=== PATIENT | female | born 1980 | race African-American/Black ===

== ENCOUNTER 2016-08-26 19:02 | Emergency (ER) | payer BC, OTHER ==
[~2016-08-26] VITALS: Ht 144.8 cm; Wt 90.7 kg
[~2016-08-26 19:02] MED LIST: ALBUTEROL SULF8.5 GM INH; ALBUTEROL2.5 MG/3 M HHN; FLONASE1 SPRAYS NASAL; IBUPROFEN800 MG ORAL; NKM; PREDNISONE20 MG ORAL; PRENATAL 19 CH1 EACH PO; PROAIR HFA8.5 GM INH; PROMETHAZINE V237 ML ORAL; VENTOLIN HFA18 GM INH; ZITHROMAX250 MG ORAL
--- NOTE | 2016-08-26 19:58 | Emergency Room Report ---
History of Present Illness General Chief Complaint: Palpitations Source: Patient Present Illness HPI Is a 36-year-old female with no similar past medical history. She had history of palpitation before. She presents with chief complaint of palpitation. Has been on and off for last couple months. Lasted only a few seconds. Denies any fever chills denies any syncope. Last time this happened she said she was . Did not check home test. No chest pain. No syncope. Allergies: Coded Allergies: No Known Allergies (Unverified , 09/07/12) Patient History Past Medical History: see triage record, old chart reviewed Past Surgical History: other Pertinent Family History: none Social History: Denies: smoking Last Menstrual Period: 3 months ago Now: No Immunizations: other Reviewed Nursing Documentation: PMH: Agreed, PSxH: Agreed Nursing Documentation-PMH Past Medical History: No History, Except For Hx Asthma: Yes Review of Systems Eye: Denies: blurred vision, eye pain ENT: Denies: ear pain, nose congestion, throat swelling Respiratory: Denies: cough, shortness of breath Cardiovascular: Reports: palpitations, Denies: chest pain Gastrointestinal: Denies: abdominal pain, diarrhea, nausea, vomiting Musculoskeletal: Denies: back pain, joint pain Skin: Denies: rash Neurological: Denies: headache, numbness Endocrine: Denies: increased thirst, increased urine Hematologic/Lymphatic: Denies: easy bruising All Other Systems: negative except mentioned in HPI Physical Exam Vital Signs Date Time Temp Pulse Resp B/P Pulse Ox O2 Delivery O2 Flow Rate FiO2 08/26/16 19:08 97.9 87 16 109/76 99 Room Air vitals normal. Sp02 EP Interpretation: reviewed, normal General Appearance: well appearing, no apparent distress, alert Head: normocephalic, atraumatic Eyes: bilateral eye EOMI, bilateral eye PERRL ENT: hearing grossly normal, normal pharynx Neck: full range of motion, supple, no meningismus Respiratory: chest non-tender, lungs clear, normal breath sounds Cardiovascular #1: regular rate, rhythm, no murmur Gastrointestinal: normal bowel sounds, non tender, no mass, no organomegaly, no bruit, non-distended Musculoskeletal: back normal, gait/station normal, normal range of motion Psychiatric: mood/affect normal Skin: warm/dry Medical Decision Making Diagnostic Impression: Primary Impression: Palpitations ER Course Patient presents with vague palpitation. Not sustain. Most likely PVC. No evidence of arrhythmia. No evidence of PE or here. We'll discharge him. EKG Diagnostic Results EP Interpretation: no Rate: normal Rhythm: NSR ST Segments: no acute changes Rhythm Strip Diag. Results EP Interpretation: yes Rate: 88 Rhythm: NSR Last Vital Signs Date Time Temp Pulse Resp B/P Pulse Ox O2 Delivery O2 Flow Rate FiO2 08/26/16 19:08 97.9 87 16 109/76 99 Room Air Status: improved Disposition: HOME, SELF-CARE Condition: Stable Referrals: NON PHYSICIAN (PCP) Patient Instructions: Palpitations Additional Instructions: Follow up with your doctor in 7 days. Return if worse. You may need a referral to see a cotton picker. CONSTANCE FINE M.D. Aug 26, 2016 19:58
[2016-08-26 20:20] VITALS: BP 104/52
== END 2016-08-26 20:20 | disposition home or self-care (01) ==
LOC: EMR 19:30
DX: R00.2 Palpitations (principal); J45.909 Unspecified asthma, uncomplicated
CPT/HCPCS: 81025; 93005; 99282

== ENCOUNTER 2017-01-22 18:11 | Emergency (ER) | payer BC, OTHER ==
[~2017-01-22] VITALS: Ht 144.8 cm; Wt 81.6 kg
[2017-01-22] MEDS ORDERED: NITROFURANTOIN100 M2 ORAL (18:58)
--- NOTE | 2017-01-22 18:58 | Emergency Room Report ---
History of Present Illness General Chief Complaint: Female Urogenital Problems Source: Patient Present Illness HPI 36-year-old female yo F no sig pmhx p/w dysuria for one day. Pt states symptoms began gradually. Complains of suprapubic pressure. +dysuria , frequency, urgency. No hematuria. No fever chills denies flank pain Monogamous with 1 partner No hx of STDs. Denies abnormal vaginal discharge or bleeding. Patient states that she has an IUD, her last period was a month ago Allergies: Coded Allergies: No Known Allergies (Unverified , 09/07/12) Patient History Past Medical History: see triage record Past Surgical History: none Pertinent Family History: none Last Menstrual Period: last month Reviewed Nursing Documentation: PMH: Agreed, PSxH: Agreed Nursing Documentation-PMH Past Medical History: No History, Except For Hx Asthma: Yes Review of Systems All Other Systems: negative except mentioned in HPI Physical Exam Vital Signs Date Time Temp Pulse Resp B/P (MAP) Pulse Ox O2 Delivery O2 Flow Rate FiO2 01/22/17 18:21 98.1 82 18 105/71 98 Room Air Sp02 EP Interpretation: reviewed, normal General Appearance: normal inspection, well appearing, no apparent distress, alert, GCS 15, non-toxic Head: normocephalic, atraumatic Eyes: bilateral eye normal inspection, bilateral eye PERRL, bilateral eye EOMI ENT: normal ENT inspection, normal pharynx, normal voice, moist mucus membranes Neck: normal inspection, full range of motion, supple Respiratory: normal inspection, lungs clear, normal breath sounds, no respiratory distress, no retraction, no wheezing, speaking full sentences, chest symmetrical Cardiovascular #1: normal inspection, regular rate, rhythm, no edema, normal capillary refill Cardiovascular #2: 2+ radial (R), 2+ radial (L) Gastrointestinal: normal inspection, non tender, soft, non-distended, no guarding Musculoskeletal: normal inspection, back normal, normal range of motion, non- tender Neurologic: normal inspection, alert, oriented x3, responsive, motor strength/ tone normal, sensory intact, normal gait, speech normal Psychiatric: normal inspection, judgement/insight normal, memory normal Skin: normal inspection, normal color, no rash, warm/dry, well hydrated, normal turgor Medical Decision Making Diagnostic Impression: Primary Impression: UTI (urinary tract infection) ER Course 36 yo F with dysuria DDX: UTI / cystitis vs. pyelo vs STD Plan: UA, UCX ER course: Patient has remained stable during ED stay. Disposition: Patient is to be discharged to home. Prescriptions given are Macrobid Patient is instructed to follow up with their primary care doctor within 5 days. Strict return precautions discussed with patient such as fever, chills, worsening/severe pain, nausea, vomiting, which may indicate severe illness. Patient verbalizes understanding and agrees with plan. Please note that this Emergency Department Report was dictated using Mtivityhelp desk assistant technology software, occasionally this can lead to erroneous entry secondary to interpretation by the dictation equipment Laboratory Tests Test 01/22/17 18:30 Urine Color Brown Urine Appearance Clear Urine pH 6 (4.5-8.0) Urine Specific [place] 1.015 (1.005-1.035) Urine Protein Negative (NEGATIVE) Urine Glucose (UA) Negative (NEGATIVE) Urine Ketones Negative (NEGATIVE) Urine Occult Blood Negative (NEGATIVE) Urine Nitrite Positive (NEGATIVE) H Urine Bilirubin 1+ (NEGATIVE) H Urine Ictotest Negative Urine Urobilinogen 4 MG/DL (0.0-1.0) H Urine Leukocyte Esterase Negative (NEGATIVE) Urine RBC 0-2 /HPF (0 - 2) Urine WBC 0-2 /HPF (0 - 2) Urine Squamous Epithelial Cells Few /LPF (NONE/OCC) Urine Bacteria Few /HPF (NONE) Urine HCG, Qualitative Negative Last Vital Signs Date Time Temp Pulse Resp B/P (MAP) Pulse Ox O2 Delivery O2 Flow Rate FiO2 01/22/17 18:21 98.1 82 18 105/71 98 Room Air Disposition: HOME, SELF-CARE Condition: Stable Scripts Nitrofurantoin Monohyd/M-Cryst* (MACROBID 100 MG*) 100 Mg Capsule 100 MG ORAL EVERY 12 HOURS for 7 Days, #14 CAP 0 Refills Prov: Corie Carrasco M.D. 01/22/17 Patient Instructions: Urinary Tract Infection Corie Carrasco M.D. Jan 22, 2017 18:58
[2017-01-22 19:07] LABS: APPEARANCE,URINE CLEAR; KETONES,URINE NEGATIVE (NEGATIVE); LEUKOCYTE ESTERASE ,URINE NEGATIVE (NEGATIVE); NITRITE,URINE POSITIVE (NEGATIVE); PH,URINE 6 (4.5-8.0); PROTEIN,URINE NEGATIVE (NEGATIVE); UROBILINOGEN,URINE 4 MG/DL (0.0-1.0)
[2017-01-22 19:14] VITALS: BP 105/71
[2017-01-22 19:36] LABS: BACTERIA,URINE FEW /HPF; ICTOTEST NEGATIVE; RBC,URINE 0-2 /HPF (0 - 2); SQUAMOUS EPITHELIAL CELL,UR FEW /LPF (NONE/OCC); WBC,URINE 0-2 /HPF (0 - 2)
[2017-01-22 19:59] VITALS: BP 105/71
== END 2017-01-22 19:59 | disposition home or self-care (01) ==
LOC: EMR 19:00
DX: N39.0 Urinary tract infection, site not specified (principal); J45.909 Unspecified asthma, uncomplicated
CPT/HCPCS: 81001; 81025; 99283

== ENCOUNTER 2017-02-27 19:37 | Emergency (ER) | payer BC ==
[~2017-02-27] VITALS: Ht 144.8 cm; Wt 81.6 kg
[~2017-02-27 19:37] MED LIST changes: +NITROFURANTOIN100 M2 ORAL
[2017-02-27 20:04] VITALS: BP 102/72
--- NOTE | 2017-02-27 20:14 | Emergency Room Report ---
History of Present Illness General Chief Complaint: Abdominal Pain Source: Patient Present Illness HPI 36YOF with 1 week of "cramps" to abdomen and nausea. Denies vomiting, fever/chills Was treated for UTI last month - finished Abx Son also here with rash to abdomen and 1x episode vomiting last night LMP 2 months ago Allergies: Coded Allergies: No Known Allergies (Unverified , 09/07/12) Patient History Past Medical History: none Past Surgical History: none Pertinent Family History: none Social History: Denies: smoking, alcohol use, drug use Last Menstrual Period: dec 25 Now: No - has IUD : 5 Para: 2 Immunizations: UTD Reviewed Nursing Documentation: PMH: Agreed, PSxH: Agreed Nursing Documentation-PMH Hx Asthma: Yes Review of Systems All Other Systems: negative except mentioned in HPI Physical Exam Vital Signs Date Time Temp Pulse Resp B/P (MAP) Pulse Ox O2 Delivery O2 Flow Rate FiO2 02/27/17 19:44 97.9 76 18 102/72 99 Sp02 EP Interpretation: reviewed, normal General Appearance: normal inspection, well appearing, no apparent distress, alert, GCS 15, non-toxic, obese Head: normocephalic, atraumatic Eyes: bilateral eye PERRL, bilateral eye EOMI ENT: normal ENT inspection, hearing grossly normal, normal pharynx, no angioedema, normal voice, TMs + canals normal, uvula midline, moist mucus membranes Neck: normal inspection, full range of motion, supple, thyroid normal, no meningismus, no bony tend Respiratory: normal inspection, lungs clear, normal breath sounds, no rhonchi, no respiratory distress, no retraction, no accessory muscle use, no wheezing, speaking full sentences Cardiovascular #1: regular rate, rhythm, no edema, no JVD, normal capillary refill Gastrointestinal: normal inspection, normal bowel sounds, non tender, soft, no mass, no peritonitis, non-distended, no guarding, no hernia, no pulsatile mass Genitourinary: no CVA tenderness Musculoskeletal: normal inspection, back normal, normal range of motion, no calf tenderness, pelvis stable, No's Sign negative Neurologic: normal inspection, alert, oriented x3, responsive, polysomnograph tech III-XII nml as tested, motor strength/tone normal, cerebellar normal, normal gait, speech normal Psychiatric: normal inspection, judgement/insight normal, mood/affect normal, no suicidal/homicidal ideation, no delusions Skin: normal inspection, normal color, no rash Lymphatic: normal inspection, no adenopathy Medical Decision Making Diagnostic Impression: Primary Impression: Abdominal cramping ER Course Urine preg negative UA: No UTI Improved cramps after Reglan, bentyl DC home Doubt acute bacterial/surgical process given well appearance, non-focal abdomen , no fever or unstable vitals ER course: Patient has remained stable during ED stay. Patient is to be discharged to home. Prescriptions given are pepcid, reglan Patient is instructed to follow up with their primary care doctor within 5 days. Strict return precautions discussed with patient such as fever, chills, worsening/severe pain, nausea, vomiting, which may indicate severe illness. Patient verbalizes understanding and agrees with plan. Please note that this Emergency Department Report was dictated using Biomodacardiovascular tech technology software, occasionally this can lead to erroneous entry secondary to interpretation by the dictation equipment Last Vital Signs Date Time Temp Pulse Resp B/P (MAP) Pulse Ox O2 Delivery O2 Flow Rate FiO2 02/27/17 20:04 97.9 18 102/72 99 02/27/17 19:44 76 Status: improved Disposition: HOME, SELF-CARE Scripts Famotidine (PEPCID) 40 Mg Tablet 40 MG PO DAILY for 7 Days, #14 TAB 0 Refills Prov: MARGY MAC M.D. 02/27/17 Metoclopramide Hcl* (REGLAN*) 10 Mg Tablet 10 MG ORAL BID for 7 Days, #14 TAB Prov: MARGY MAC M.D. 02/27/17 MARGY MAC M.D. Feb 27, 2017 20:14
[2017-02-27] MEDS ORDERED: Metoclopramide 10mg/10ml Liq ORAL ONE (20:15)
[2017-02-27 20:30] LABS: APPEARANCE,URINE CLEAR; KETONES,URINE NEGATIVE (NEGATIVE); LEUKOCYTE ESTERASE ,URINE NEGATIVE (NEGATIVE); NITRITE,URINE NEGATIVE (NEGATIVE); PH,URINE 5 (4.5-8.0); PROTEIN,URINE NEGATIVE (NEGATIVE); UROBILINOGEN,URINE NORMAL MG/DL (0.0-1.0)
[2017-02-27 20:38] LABS: RBC,URINE 0-2 /HPF (0 - 2); SQUAMOUS EPITHELIAL CELL,UR MODERATE /LPF (NONE/OCC); WBC,URINE 0-2 /HPF (0 - 2)
[2017-02-27] MEDS ORDERED: Ketorolac 60mg Inj IM ONE (20:45)
[2017-02-27] MEDS ORDERED: REGLAN10 M1 ORAL (20:46)
[2017-02-27] MEDS ORDERED: PEPCID40 MG PO (20:46)
[2017-02-27 20:59] VITALS: BP 128/71
== END 2017-02-27 20:59 | disposition home or self-care (01) ==
LOC: EMR 20:14
DX: R10.9 Unspecified abdominal pain (principal); J45.909 Unspecified asthma, uncomplicated; Z87.440 Personal history of urinary (tract) infections
CPT/HCPCS: 81003; 81025; 99284

== ENCOUNTER 2018-10-27 13:03 | Emergency (ER) | payer BC ==
[~2018-10-27] VITALS: Ht 144.8 cm; Wt 117.0 kg
[~2018-10-27 13:03] MED LIST changes: +PEPCID40 MG PO; +REGLAN10 M1 ORAL
[2018-10-27] MEDS ORDERED: NKM (13:11)
[2018-10-27 13:20] VITALS: BP 107/66
--- NOTE | 2018-10-27 13:20 | NUR ---
ED Nurse Note: pt walked in due to headache started yesterday, no trauma. pt denies blurred vison. able to walked with steady gait. pt stated she has bruning urination. rosi rodriguez on bedside. pt able to give urine sample and blood drawn and was sent to lab. will continue to monitor
[2018-10-27] MEDS ORDERED: Ketorolac 30mg Inj IV ONE (13:30)
--- NOTE | 2018-10-27 13:30 | Emergency Room Report ---
History of Present Illness General Chief Complaint: Headache Source: Patient Present Illness HPI 38-year-old female complaining of frontal headache, vomiting, runny nose, burning urination since yesterday. Pain is 6/10, pressure in quality. Denies fever, neck pain, blood in urine, diarrhea. No current medications. No sick contacts. She drove herself to the ER. Allergies: Coded Allergies: No Known Allergies (Unverified , 09/07/12) Patient History Past Medical History: none Past Surgical History: none Social History: Denies: smoking, alcohol use, drug use Last Menstrual Period: 10/06/18 Now: No : 4 Para: 3 Nursing Documentation-[facility] Past Medical History: No Stated History Hx Asthma: Yes Review of Systems All Other Systems: negative except mentioned in HPI Physical Exam Vital Signs Date Time Temp Pulse Resp B/P (MAP) Pulse Ox O2 Delivery O2 Flow Rate FiO2 10/27/18 13:07 98.6 77 17 107/66 (80) 96 Room Air Sp02 EP Interpretation: reviewed, normal General Appearance: no apparent distress, alert, GCS 15, non-toxic Eyes: bilateral eye normal inspection, bilateral eye PERRL ENT: hearing grossly normal, normal pharynx, no angioedema, normal voice Neck: full range of motion, no meningismus, supple/symm/no masses Respiratory: chest non-tender, lungs clear, normal breath sounds, speaking full sentences Cardiovascular #1: regular rate, rhythm, no edema Gastrointestinal: non tender, soft, no guarding, no rebound Genitourinary: no CVA tenderness Neurologic: normal inspection, skirt maker III-XII nml as tested, sensory intact, normal gait Psychiatric: judgement/insight normal, memory normal, mood/affect normal, no suicidal/homicidal ideation Medical Decision Making PA Attestation This patient was seen under the direct supervision of Dr. Joe who directed all aspects of care and diagnostic interpretation. ER Course ED course HPI: 38-year-old female complaining of frontal headache, vomiting, runny nose, burning urination since yesterday. Pain is 6/10, pressure in quality. Patient is well-appearing, nontoxic in appearance. Afebrile. Abdomen soft, nontender. No reboud, guarding or rigidity. Do not suspect acute abdomen. No neurological deficits. Patient exhibiting strong steady gait. Pt has no focal neural, arm drift, facial droop, unilateral weakness or numbness, slurred speech, vision impairment, therefore acute intracranial emergency is unlikely. No signs and symptoms of bacterial etiology/ meningitis. Ddx: viral syndrome versus UTI versus sinusitis HPI & PE consistent with: Headache Orders/ Interventions: Labs ordered. Normal CBC. Normal CMP. Negative urine . 3+ blood on urine, no evidence of UTI. Results discussed with patient. Patient given Toradol 30 mg, Zofran 4 mg and 1 L of normal saline in the ER, with improvement of symptoms. Disposition: Patient stable for discharge home. Rx for Naprosyn given. Supportive care. Increase oral hydration and rest. Followup with PCP for recheck of hematuria referral to urology. Followup with PCP in 2 days return to ED if worsening symptoms, new symptoms or sudden change in condition. Please note that this Emergency Department Report was dictated using TapZillasupervisor ornamental ironworking technology software, occasionally this can lead to erroneous entry secondary to interpretation by the dictation equipment. Laboratory Tests Test 10/27/18 13:25 White Blood Count 5.7 K/UL (4.8-10.8) Red Blood Count 4.78 M/UL (4.20-5.40) Hemoglobin 13.5 G/DL (12.0-16.0) Hematocrit 41.1 % (37.0-47.0) Mean Corpuscular Volume 86 FL (80-99) Mean Corpuscular Hemoglobin 28.2 PG (27.0-31.0) Mean Corpuscular Hemoglobin Concent 32.8 G/DL (32.0-36.0) Red Cell Distribution Width 11.6 % (11.6-14.8) Platelet Count 317 K/UL (150-450) Mean Platelet Volume 5.3 FL (6.5-10.1) L Neutrophils (%) (Auto) 52.1 % (45.0-75.0) Lymphocytes (%) (Auto) 28.7 % (20.0-45.0) Monocytes (%) (Auto) 10.3 % (1.0-10.0) H Eosinophils (%) (Auto) 7.2 % (0.0-3.0) H Basophils (%) (Auto) 1.7 % (0.0-2.0) Urine Color Pale yellow Urine Appearance Clear Urine pH 6 (4.5-8.0) Urine Specific [place] 1.020 (1.005-1.035) Urine Protein Negative (NEGATIVE) Urine Glucose (UA) Negative (NEGATIVE) Urine Ketones Negative (NEGATIVE) Urine Blood 3+ (NEGATIVE) H Urine Nitrite Negative (NEGATIVE) Urine Bilirubin Negative (NEGATIVE) Urine Urobilinogen 1 MG/DL (0.0-1.0) H Urine Leukocyte Esterase 1+ (NEGATIVE) H Urine RBC 2-4 /HPF (0 - 2) H Urine WBC 0-2 /HPF (0 - 2) Urine Squamous Epithelial Cells Few /LPF (NONE/OCC) Urine Bacteria Few /HPF (NONE) Sodium Level 139 MMOL/L (136-145) Potassium Level 4.1 MMOL/L (3.5-5.1) Chloride Level 107 MMOL/L (98-107) Carbon Dioxide Level 24 MMOL/L (21-32) Anion Gap 8 mmol/L (5-15) Blood Urea Nitrogen 15 mg/dL (7-18) Creatinine 0.8 MG/DL (0.55-1.30) Estimat Glomerular Filtration Rate > 60 mL/min (>60) Glucose Level 89 MG/DL (74-106) Calcium Level 8.9 MG/DL (8.5-10.1) Total Bilirubin 0.2 MG/DL (0.2-1.0) Aspartate Amino Transf (AST/SGOT) 17 U/L (15-37) Alanine Aminotransferase (ALT/SGPT) 18 U/L (12-78) Alkaline Phosphatase 48 U/L (46-116) Total Protein 7.1 G/DL (6.4-8.2) Albumin 3.4 G/DL (3.4-5.0) Globulin 3.7 g/dL Albumin/Globulin Ratio 0.9 (1.0-2.7) L Human Chorionic Gonadotropin, Qual Negative (NEGATIVE) Last Vital Signs Date Time Temp Pulse Resp B/P (MAP) Pulse Ox O2 Delivery O2 Flow Rate FiO2 10/27/18 13:07 98.6 77 17 107/66 (80) 96 Room Air Status: improved Disposition: HOME, SELF-CARE Condition: Improved Scripts Naproxen (Naproxen) 250 Mg Tablet 250 MG PO BID, #10 TAB Prov: Alton Brown 10/27/18 Patient Instructions: General Headache Without Cause Additional Instructions: Prescription for Naprosyn given. Follow-up with PCP in 2 days or return to ED if worsening symptoms, new symptoms, or sudden change in condition. Alton Brown Oct 27, 2018 13:30
--- NOTE | 2018-10-27 13:35 | NUR ---
ED Nurse Note: iv started per pa sybel order. iv meds given. pt able to tolerate. will continue to monitor.
[2018-10-27 13:38] LABS: APPEARANCE,URINE CLEAR; BASOPHILS % (AUTO) 1.7 % (0.0-2.0); BILIRUBIN, URINE NEGATIVE (NEGATIVE); COLOR,URINE PALE YELLOW; EOSINOPHILS % (AUTO) 7.2 % (0.0-3.0); GLUCOSE, URINE (UA) NEGATIVE (NEGATIVE); HEMATOCRIT 41.1 % (37.0-47.0); HEMOGLOBIN 13.5 G/DL (12.0-16.0); KETONES,URINE NEGATIVE (NEGATIVE); LEUKOCYTE ESTERASE ,URINE 1+ (NEGATIVE); LYMPHOCYTES % (AUTO) 28.7 % (20.0-45.0); MEAN CORPUSCULAR VOLUME 86 FL (80-99); MONOCYTES % (AUTO) 10.3 % (1.0-10.0); NEUTROPHILS % (AUTO) 52.1 % (45.0-75.0); NITRITE,URINE NEGATIVE (NEGATIVE); PH,URINE 6 (4.5-8.0); PLATELET COUNT 317 K/UL (150-450); PROTEIN,URINE NEGATIVE (NEGATIVE); RED BLOOD COUNT 4.78 M/UL (4.20-5.40); RED CELL DISTRIBUTION WIDTH 11.6 % (11.6-14.8); UROBILINOGEN,URINE 1 MG/DL (0.0-1.0); WHITE BLOOD COUNT 5.7 K/UL (4.8-10.8)
[2018-10-27 13:49] LABS: ANION GAP 8 mmol/L (5-15); BLOOD UREA NITROGEN 15 mg/dL (7-18); CALCIUM 8.9 MG/DL (8.5-10.1); CARBON DIOXIDE 24 MMOL/L (21-32); CHLORIDE 107 MMOL/L (98-107); CREATININE 0.8 MG/DL (0.55-1.30); POTASSIUM 4.1 MMOL/L (3.5-5.1); SODIUM 139 MMOL/L (136-145)
[2018-10-27 13:51] LABS: ALANINE AMINOTRANSFERASE 18 U/L (12-78); ALBUMIN 3.4 G/DL (3.4-5.0); ALBUMIN/GLOBULIN RATIO 0.9 (1.0-2.7); ALKALINE PHOSPHATASE 48 U/L (46-116); ASPARTATE AMINO TRANSFERASE 17 U/L (15-37); BILIRUBIN,TOTAL 0.2 MG/DL (0.2-1.0)
--- NOTE | 2018-10-27 14:00 | NUR ---
ED Nurse Note: rosi rodriguez ordered 1000cc ns to run for 1 hour and carried out. will continue to monitor.
[2018-10-27] MEDS ORDERED: NAPROXEN250 M1 PO (14:32)
[2018-10-27 14:44] VITALS: BP 107/66
--- NOTE | 2018-10-27 14:44 | NUR ---
ER DISCHARGE NOTE: Patient is cleared to be discharged per ERMD, pt is aox4, on room air, with stable vital signs. pt was given dc and prescription instructions, pt was able to verbalize understanding, pt id band and iv site removed without complications. pt is able to ambulate with steady gait. pt took all belongings.
== END 2018-10-27 14:44 | disposition home or self-care (01) ==
LOC: EMR 13:30
DX: R51 Headache (principal); R11.10 Vomiting, unspecified; R30.0 Dysuria; R09.89 Other specified symptoms and signs involving the circulatory and respiratory systems
CPT/HCPCS: 36415; 80053; 81001; 84703; 85025; 87086; 96374; 96375; 99284; J1885; J2405

== ENCOUNTER 2019-05-24 08:58 | Emergency (ER) | payer BC ==
[~2019-05-24] VITALS: Ht 144.8 cm; Wt 77.1 kg
[~2019-05-24 08:58] MED LIST changes: +NAPROXEN250 M1 PO
[2019-05-24 09:04] VITALS: BP 108/77
--- NOTE | 2019-05-24 09:41 | Emergency Room Report ---
History of Present Illness General Chief Complaint: Back Pain-No Injury Source: Patient Present Illness HPI Patient is a 39-year-old female presented after increased left-sided back pain. She reports having onset of symptoms this morning. Reports recently lifting heavy objects at work. Pain is worse with movement. Denies any recent trauma. Denies any dysuria. She states she is had some back pain since this morning. Denies any vomiting or diarrhea. Denies numbness or weakness to her legs. Had reportedly been urinating normally.Patient denies any recent travel. COVID-19 risk:Travel to affect: No Has patient experienced pollock: No Allergies: Coded Allergies: No Known Allergies (Unverified , 09/07/12) Patient History Last Menstrual Period: started 05/22 Now: No Reviewed Nursing Documentation: PMH: Agreed; PSxH: Agreed Nursing Documentation-PMH Past Medical History: No History, Except For Hx Asthma: Yes Review of Systems All Other Systems: negative except mentioned in HPI Physical Exam Vital Signs Date Time Temp Pulse Resp B/P (MAP) Pulse Ox O2 Delivery O2 Flow Rate FiO2 05/24/19 09:04 97.7 91 19 108/77 95 Room Air General Appearance: well appearing, no apparent distress, alert, GCS 15, obese Head: normocephalic, atraumatic ENT: hearing grossly normal, normal voice Neck: full range of motion, supple Respiratory: chest non-tender, lungs clear, normal breath sounds, no respiratory distress, speaking full sentences Cardiovascular #1: normal inspection, no edema Gastrointestinal: normal inspection Musculoskeletal: normal inspection, no calf tenderness Neurologic: alert, motor strength/tone normal, hydrogeologist III-XII nml as tested, oriented x3, normal gait Psychiatric: normal inspection, mood/affect normal Skin: no rash Medical Decision Making Diagnostic Impression: Primary Impression: Flank pain ER Course Patient presented for flank pain. Differential diagnosis include was not limited to pneumonia, renal renal stone, pyelonephritis among others. Because of complexity of patient's case laboratory tests and imaging studies were ordered.Patient was advised not to lift heavy objects. Does not appear to have any evidence of acute respiratory infection. Chest x-ray read by radiology showed: Lung bases: Unremarkable. No mass. No consolidation. Left basilar opacity may represent atelectasis versus pneumonia. CT of the abdomen pelvis showed: ABDOMEN: Liver: Unremarkable. Gallbladder and bile ducts: Unremarkable. No calcified stones. No ductal dilation. Pancreas: Unremarkable. No ductal dilation. Spleen: Unremarkable. No splenomegaly. Adrenals: Unremarkable. No mass. Kidneys and ureters: No hydronephrosis or stone. Stomach and bowel: Unremarkable. No obstruction. No mucosal thickening. PELVIS: Appendix: Normal appendix. Bladder: Unremarkable. No stones. Reproductive: Unremarkable as visualized. ABDOMEN and PELVIS: Intraperitoneal space: Unremarkable. No free air. No significant fluid collection. Bones/joints: Probable small bone islands in the pelvic bones. No acute fracture. No dislocation. Soft tissues: Small fat-containing ventral hernias. Vasculature: Small phleboliths in the pelvis. No abdominal aortic aneurysm. Lymph nodes: Unremarkable. No enlarged lymph nodes. Patient's chest x-ray and CT had discrepant findings with CT showing no evidence of infiltrate. Patient does not appear to have any evidence of pneumonia. Patient advised to follow-up with her primary care physician for recheck. She is advised to avoid lifting heavy objects. She is advised to return if worse. The patient is advised to follow up with primary care doctor in 1-2 days. Patient is advised to return if any worsening condition or if any changes in status that are concerning. This report is dictated with AirC[employer] apple sorter software which may occasionally lead to discrepancies related to use of this software. Last Vital Signs Date Time Temp Pulse Resp B/P (MAP) Pulse Ox O2 Delivery O2 Flow Rate FiO2 05/24/19 09:04 97.7 91 19 108/77 (87) 95 Room Air Status: improved Disposition: HOME, SELF-CARE Condition: Stable Scripts Omeprazole Magnesium (PRILOSEC OTC) 20 Mg Tablet. 20 MG ORAL DAILY, #30 TAB Prov: Epifanio Isaac MD 05/24/19 Acetaminophen* (ACETAMINOPHEN EXTRA STRENGTH*) 500 Mg Tablet 500 MG ORAL Q8H PRN for Fever/Headache/Mild Pain, #30 TAB Prov: Epifanio Isaac MD 05/24/19 Epifanio Isaac MD May 24, 2019 09:41
[2019-05-24 09:49] LABS: APPEARANCE,URINE CLEAR; BILIRUBIN, URINE NEGATIVE (NEGATIVE); COLOR,URINE PALE YELLOW; GLUCOSE, URINE (UA) NEGATIVE (NEGATIVE); KETONES,URINE NEGATIVE (NEGATIVE); LEUKOCYTE ESTERASE ,URINE NEGATIVE (NEGATIVE); NITRITE,URINE NEGATIVE (NEGATIVE); PH,URINE 6 (4.5-8.0); PROTEIN,URINE NEGATIVE (NEGATIVE); UROBILINOGEN,URINE NORMAL MG/DL (0.0-1.0)
--- NOTE | 2019-05-24 10:34 | Diagnostic Imaging Report ---
EXAM: XR Chest, 1 View CLINICAL HISTORY: COUGH TECHNIQUE: Frontal view of the chest. COMPARISON: Chest radiograph on 09/24/2015 FINDINGS: Hardware: None. Lungs/pleura: Left basilar opacity may represent atelectasis versus pneumonia. No pleural effusion or pneumothorax. Heart/mediastinum: Normal. No cardiomegaly. Soft tissues: Unremarkable. Bones: No acute fracture. Upper abdomen: Normal. IMPRESSION: Left basilar opacity may represent atelectasis versus pneumonia.
[2019-05-24] MEDS ORDERED: Ketorolac 60mg Inj IM ONE (11:15)
--- NOTE | 2019-05-24 12:23 | Diagnostic Imaging Report ---
EXAM: CT Abdomen and Pelvis Without Intravenous Contrast CLINICAL HISTORY: PAIN TECHNIQUE: Axial computed tomography images of the abdomen and pelvis without intravenous contrast. CTDI is 13.2 mGy and DLP is 655 mGy-cm. One or more of the following dose reduction techniques were used: automated exposure control, adjustment of the mA and/or kV according to patient size, use of iterative reconstruction technique. COMPARISON: None FINDINGS: Lung bases: Unremarkable. No mass. No consolidation. ABDOMEN: Liver: Unremarkable. Gallbladder and bile ducts: Unremarkable. No calcified stones. No ductal dilation. Pancreas: Unremarkable. No ductal dilation. Spleen: Unremarkable. No splenomegaly. Adrenals: Unremarkable. No mass. Kidneys and ureters: No hydronephrosis or stone. Stomach and bowel: Unremarkable. No obstruction. No mucosal thickening. PELVIS: Appendix: Normal appendix. Bladder: Unremarkable. No stones. Reproductive: Unremarkable as visualized. ABDOMEN and PELVIS: Intraperitoneal space: Unremarkable. No free air. No significant fluid collection. Bones/joints: Probable small bone islands in the pelvic bones. No acute fracture. No dislocation. Soft tissues: Small fat-containing ventral hernias. Vasculature: Small phleboliths in the pelvis. No abdominal aortic aneurysm. Lymph nodes: Unremarkable. No enlarged lymph nodes. IMPRESSION: No acute findings in the abdomen or pelvis.
[2019-05-24] MEDS ORDERED: ACETAMINOPHEN500 M3 ORAL (12:26)
[2019-05-24] MEDS ORDERED: PRILOSEC OTC20 MG ORAL (12:26)
[2019-05-24 12:47] VITALS: BP 108/77
== END 2019-05-24 12:47 | disposition home or self-care (01) ==
LOC: EMR 09:40
DX: R10.9 Unspecified abdominal pain (principal); E66.9 Obesity, unspecified; K43.9 Ventral hernia without obstruction or gangrene
CPT/HCPCS: 71045; 74176; 81001; 81025; 96372; 99284

== ENCOUNTER 2019-08-22 14:42 | Emergency (ER) | payer SELFPAY ==
[~2019-08-22] VITALS: Ht 144.8 cm; Wt 96.6 kg
[~2019-08-22 14:42] MED LIST changes: +ACETAMINOPHEN500 M3 ORAL; +PRILOSEC OTC20 MG ORAL
[2019-08-22 15:14] VITALS: BP 106/75
[2019-08-22] MEDS ORDERED: Phenazopyridine 200mg tab ORAL ONE (15:45)
[2019-08-22 15:53] LABS: BASOPHILS % (AUTO) 1.6 % (0.0-2.0); EOSINOPHILS % (AUTO) 3.4 % (0.0-3.0); HEMATOCRIT 45.8 % (37.0-47.0); HEMOGLOBIN 14.4 G/DL (12.0-16.0); LYMPHOCYTES % (AUTO) 31.3 % (20.0-45.0); MEAN CORPUSCULAR VOLUME 89 FL (80-99); MONOCYTES % (AUTO) 6.1 % (1.0-10.0); NEUTROPHILS % (AUTO) 57.6 % (45.0-75.0); PLATELET COUNT 366 K/UL (150-450); RED BLOOD COUNT 5.14 M/UL (4.20-5.40); RED CELL DISTRIBUTION WIDTH 13.2 % (11.6-14.8); WHITE BLOOD COUNT 7.2 K/UL (4.8-10.8)
[2019-08-22 16:06] LABS: ANION GAP 8 mmol/L (5-15); BLOOD UREA NITROGEN 15 mg/dL (7-18); CALCIUM 8.8 MG/DL (8.5-10.1); CARBON DIOXIDE 29 MMOL/L (21-32); CHLORIDE 101 MMOL/L (98-107); CREATININE 1.1 MG/DL (0.55-1.30); POTASSIUM 4.3 MMOL/L (3.5-5.1); SODIUM 137 MMOL/L (136-145)
[2019-08-22 16:11] LABS: ALANINE AMINOTRANSFERASE 29 U/L (12-78); ALBUMIN 3.8 G/DL (3.4-5.0); ALKALINE PHOSPHATASE 53 U/L (46-116); ASPARTATE AMINO TRANSFERASE 18 U/L (15-37); BILIRUBIN,TOTAL 0.2 MG/DL (0.2-1.0)
[2019-08-22 16:51] LABS: APPEARANCE,URINE CLEAR; BILIRUBIN, URINE NEGATIVE (NEGATIVE); COLOR,URINE PALE YELLOW; GLUCOSE, URINE (UA) NEGATIVE (NEGATIVE); KETONES,URINE NEGATIVE (NEGATIVE); LEUKOCYTE ESTERASE ,URINE NEGATIVE (NEGATIVE); NITRITE,URINE NEGATIVE (NEGATIVE); PH,URINE 7 (4.5-8.0); PROTEIN,URINE NEGATIVE (NEGATIVE); UROBILINOGEN,URINE NORMAL MG/DL (0.0-1.0)
[2019-08-22 17:15] VITALS: BP 112/76
--- NOTE | 2019-08-22 17:28 | Emergency Room Report ---
History of Present Illness General Chief Complaint: Vomiting Source: Patient Present Illness HPI 39 YO Female presents to the ED c/o Vomiting x 3 days with associated nausea x 1 week. Denies fevers, chills, constipation or diarrhea. She also reports dysuria. She denies hematuria, urinary frequency or urgency. Patient denies vaginal discharge or bleeding. Patient reports the possibility of exists. She denies abdominal pain or tenderness. Patient reports generalized malaise and fatigue. She denies joint pain or muscle spasms. She denies headache, visual changes, neck pain/stiffness, cough, chest pain or palpitations. She denies recent head injury. She denies blood in the vomitus. She denies blood in the stool or black tarry stools. No other aggravating or relieving factors at this time patient does not report any other symptoms. Allergies: Coded Allergies: No Known Allergies (Unverified , 09/07/12) COVID-19 Screening Contact w/high risk pt: No Recent Travel to affected area: No Experienced COVID-19 symptoms?: No COVID-19 Testing performed SAP MANAGER: No Patient History Past Medical History: see triage record Past Surgical History: none Pertinent Family History: none Last Menstrual Period: 07/18/19 Now: No Immunizations: UTD Reviewed Nursing Documentation: PMH: Agreed; PSxH: Agreed Nursing Documentation-PMH Past Medical History: No History, Except For Hx Asthma: Yes Review of Systems All Other Systems: negative except mentioned in HPI Physical Exam Vital Signs Date Time Temp Pulse Resp B/P (MAP) Pulse Ox O2 Delivery O2 Flow Rate FiO2 08/22/19 14:52 98.2 70 16 106/75 (85) 99 Room Air Sp02 EP Interpretation: reviewed, normal General Appearance: no apparent distress, alert, GCS 15, non-toxic Head: normocephalic, atraumatic Eyes: bilateral eye normal inspection, bilateral eye PERRL ENT: hearing grossly normal, normal voice Neck: full range of motion Respiratory: lungs clear, normal breath sounds, speaking full sentences Cardiovascular #1: regular rate, rhythm Gastrointestinal: normal bowel sounds, non tender - no appreciable tenderness on exam. , soft, no mass, no peritonitis, non-distended, no guarding Rectal: deferred Genitourinary: normal inspection, no CVA tenderness, adnexa normal Musculoskeletal: normal range of motion, gait/station normal, non-tender Neurologic: alert, motor strength/tone normal, oriented x3, sensory intact, responsive, speech normal Psychiatric: judgement/insight normal Skin: normal color Medical Decision Making PA Attestation Dr. Solares is my supervising Physician whom patient management has been discussed with. Diagnostic Impression: Primary Impression: Vomiting Qualified Codes: R11.2 - Nausea with vomiting, unspecified ER Course 39 YO Female presents to the ED c/o Vomiting x 3 days with associated nausea x 1 week. Denies fevers, chills, constipation or diarrhea. She also reports dysuria. She denies hematuria, urinary frequency or urgency. Patient denies vaginal discharge or bleeding. Patient reports the possibility of exists. She denies abdominal pain or tenderness. Patient reports generalized malaise and fatigue. She denies joint pain or muscle spasms. She denies headache, visual changes, neck pain/stiffness, cough, chest pain or palpitations. She denies recent head injury. She denies blood in the vomitus. She denies blood in the stool or black tarry stools. No other aggravating or relieving factors at this time patient does not report any other symptoms. Ddx considered but are not limited to Diverticulitis, acute appendicitis, diarrhea,UC, PUD, GE, pancreatitis, gallstone, ovarian torsion, , ectopic , PID tubo-ovarian abscess, COVID-19. Vital signs: are WNL, pt. is afebrile. H&PE are most consistent with gastritis versus possible . Patient is nontoxic, in appearance she is in no acute distress. Not hypoxic. No obvious clinical exam signs to suggest significant dehydration. ORDERS: -CBC, CMP, LIPASE: WNL -UA: WNL -URINE HCG: negative -UDS: All negative ED INTERVENTIONS: -1000cc NS IV -Zofran 4mg IV -Pepcid 20mg IV -Pyridium 200mg After above interventions this patient successfully completed oral fluid challenge without nausea or vomiting. She reports nausea has subsided. -I do not identify an emergent condition at this time. With current presentation , pt. is stable for close outpatient follow up and conservative treatment. D/ w pt. to return promptly to ED with worsening or new symptoms.- Pt. verbalizes' understanding and agreement with proposed treatment plan. DISCHARGE: At this time pt. is stable for d/c to home. Will provide printed patient care instructions, and any necessary prescriptions. Care plan and follow up instructions have been discussed with the patient prior to discharge. Labs Test 08/22/19 15:20 08/22/19 15:30 Urine Color Pale yellow Urine Appearance Clear Urine pH 7 (4.5-8.0) Urine Specific [place] 1.010 (1.005-1.035) Urine Protein Negative (NEGATIVE) Urine Glucose (UA) Negative (NEGATIVE) Urine Ketones Negative (NEGATIVE) Urine Blood Negative (NEGATIVE) Urine Nitrite Negative (NEGATIVE) Urine Bilirubin Negative (NEGATIVE) Urine Urobilinogen Normal MG/DL (0.0-1.0) Urine Leukocyte Esterase Negative (NEGATIVE) Urine HCG, Qualitative Negative (NEGATIVE) Urine Opiates Screen Negative (NEGATIVE) Urine Barbiturates Screen Negative (NEGATIVE) Phencyclidine (PCP) Screen Negative (NEGATIVE) Urine Amphetamines Screen Negative (NEGATIVE) Urine Benzodiazepines Screen Negative (NEGATIVE) Urine Cocaine Screen Negative (NEGATIVE) Urine Marijuana (THC) Screen Negative (NEGATIVE) White Blood Count 7.2 K/UL (4.8-10.8) Red Blood Count 5.14 M/UL (4.20-5.40) Hemoglobin 14.4 G/DL (12.0-16.0) Hematocrit 45.8 % (37.0-47.0) Mean Corpuscular Volume 89 FL (80-99) Mean Corpuscular Hemoglobin 27.9 PG (27.0-31.0) Mean Corpuscular Hemoglobin Concent 31.3 G/DL (32.0-36.0) Red Cell Distribution Width 13.2 % (11.6-14.8) Platelet Count 366 K/UL (150-450) Mean Platelet Volume 5.8 FL (6.5-10.1) Neutrophils (%) (Auto) 57.6 % (45.0-75.0) Lymphocytes (%) (Auto) 31.3 % (20.0-45.0) Monocytes (%) (Auto) 6.1 % (1.0-10.0) Eosinophils (%) (Auto) 3.4 % (0.0-3.0) Basophils (%) (Auto) 1.6 % (0.0-2.0) Sodium Level 137 MMOL/L (136-145) Potassium Level 4.3 MMOL/L (3.5-5.1) Chloride Level 101 MMOL/L (98-107) Carbon Dioxide Level 29 MMOL/L (21-32) Anion Gap 8 mmol/L (5-15) Blood Urea Nitrogen 15 mg/dL (7-18) Creatinine 1.1 MG/DL (0.55-1.30) Estimat Glomerular Filtration Rate > 60 mL/min (>60) Glucose Level 85 MG/DL (74-106) Calcium Level 8.8 MG/DL (8.5-10.1) Total Bilirubin 0.2 MG/DL (0.2-1.0) Aspartate Amino Transf (AST/SGOT) 18 U/L (15-37) Alanine Aminotransferase (ALT/SGPT) 29 U/L (12-78) Alkaline Phosphatase 53 U/L (46-116) Total Protein 7.6 G/DL (6.4-8.2) Albumin 3.8 G/DL (3.4-5.0) Globulin 3.8 g/dL Albumin/Globulin Ratio 1.0 (1.0-2.7) Lipase 54 U/L (73-393) Last Vital Signs Date Time Temp Pulse Resp B/P (MAP) Pulse Ox O2 Delivery O2 Flow Rate FiO2 08/22/19 17:15 98.2 80 18 112/76 100 Room Air Status: improved Disposition: HOME, SELF-CARE Condition: Stable Scripts Famotidine* (Pepcid 20mg tablet*) 20 Mg Tablet 20 MG ORAL TWICE A DAY, #10 TAB 0 Refills Prov: Whit Kang 08/22/19 Phenazopyridine Hcl* (PYRIDIUM*) 100 Mg Tablet 100 MG ORAL THREE TIMES A DAY, #9 TAB Prov: Whit Kang 08/22/19 Ondansetron Odt* (ZOFRAN ODT*) 4 Mg Tab.rapdis 4 MG BC EVERY 6 HOURS PRN for Nausea & Vomiting, #10 TAB 0 Refills Prov: Whit Kang 08/22/19 Referrals: [facility] + [facility] Patient Instructions: Nausea and Vomiting, Adult Additional Instructions: ~ ~ An emergent medical condition has not been identified based on this patients presentation, exam and any necessary testing/imaging. The patient is determined to be stable for outpatient follow-up and management of symptoms by a primary care provider. Take medications as directed. Follow up with a Primary Care Provider in 3-5 days, even if your symptoms have resolved. --Please review list of primary care clinics, if you do not already have a primary care provider Return sooner to ED if new symptoms occur, or current symptoms become worse. - Please note that this Emergency Department Report was dictated using [employer] off braker machine technology software, occasionally this can lead to erroneous entry secondary to interpretation by the dictation equipment. Whit Kang Aug 22, 2019 17:28
[2019-08-22] MEDS ORDERED: ONDANSETRON ODT4 MG BC (17:39)
[2019-08-22] MEDS ORDERED: PHENAZOPYRIDIN100 MG ORAL (17:39)
[2019-08-22] MEDS ORDERED: FAMOTIDINE20 MG ORAL (17:39)
[2019-08-22 17:53] VITALS: BP 112/76
== END 2019-08-22 17:53 | disposition home or self-care (01) ==
LOC: EMR 15:00
DX: R11.2 Nausea with vomiting, unspecified (principal); R30.0 Dysuria; R53.83 Other fatigue
CPT/HCPCS: 36415; 80053; 80307; 81003; 81025; 83690; 85025; 96361; 96374; 96375; 99284; J2405; J7030; S0028

== ENCOUNTER 2019-09-20 09:29 | Emergency (ER) | payer BC ==
[~2019-09-20] VITALS: Ht 144.8 cm; Wt 96.6 kg
[~2019-09-20 09:29] MED LIST changes: +FAMOTIDINE20 MG ORAL; +ONDANSETRON ODT4 MG BC; +PHENAZOPYRIDIN100 MG ORAL
--- NOTE | 2019-09-20 09:43 | NUR ---
ED Nurse Note: Pt ambulated to ED from home d/t dry cough started since last night and complains of shortness of breath. Pt is AOx4, calm and cooperative, per pt she has asthma and hx of sinusitis. Placed on bed, pt satting at 96% on RA. Per pt she got tested for covid last month with negative results. ERMD at bedside. Door kept closed at all times.
[2019-09-20 09:46] VITALS: BP 132/94
--- NOTE | 2019-09-20 09:58 | NUR ---
ED Nurse Note: covid 19 rapid swabs and urine specimen collected, sent to labs.
[2019-09-20] MEDS ORDERED: Albuterol/Ipratropium 3ml neb HHN ONE ×2 (10:00→11:15)
--- NOTE | 2019-09-20 10:06 | Emergency Room Report ---
History of Present Illness General Chief Complaint: Upper Respiratory Illness Source: Patient Present Illness HPI Patient is a 39-year-old female presents after increased difficulty with breathing. Prior history of asthma. She had run out of her inhaler. She reports having increased work of breathing. Denies any fever. Had negative coronavirus testing approximately 1 month ago. Denies any vomiting or diarrhea. No leg pain or swelling. Denies any sick contacts. Nonproductive cough Allergies: Coded Allergies: No Known Allergies (Unverified , 09/07/12) COVID-19 Screening Contact w/high risk pt: No Recent Travel to affected area: No Experienced COVID-19 symptoms?: Yes COVID-19 Testing performed GLASSWARE SELECTOR: No Patient History Past Medical History: see triage record Last Menstrual Period: 09/11/19 Reviewed Nursing Documentation: PMH: Agreed; PSxH: Agreed Nursing Documentation-PMH Past Medical History: No History, Except For Hx Asthma: Yes Review of Systems All Other Systems: negative except mentioned in HPI Physical Exam Vital Signs Date Time Temp Pulse Resp B/P (MAP) Pulse Ox O2 Delivery O2 Flow Rate FiO2 09/20/19 09:34 98.2 88 17 132/94 (107) 96 Room Air Sp02 EP Interpretation: reviewed, normal General Appearance: normal inspection, well appearing, no apparent distress, alert, obese Head: atraumatic ENT: normal ENT inspection, hearing grossly normal, normal voice Neck: normal inspection, full range of motion, supple, no bony tend Respiratory: normal inspection, normal breath sounds, no respiratory distress, no retraction, decreased breath sounds Cardiovascular #1: regular rate, rhythm, no edema Gastrointestinal: normal inspection, normal bowel sounds, non tender, soft, no guarding, no hernia Genitourinary: no CVA tenderness Musculoskeletal: normal inspection, back normal, normal range of motion Neurologic: alert, motor strength/tone normal, mailing section clerk III-XII nml as tested, oriented x3, responsive, speech normal, normal inspection Psychiatric: normal inspection, judgement/insight normal, mood/affect normal Medical Decision Making Diagnostic Impression: Primary Impression: Bronchitis ER Course Patient presented for shortness of breath. Differential included but was not limited to asthma, coronavirus, anemia, pneumonia, pneumothorax, acidosis. rapid coronavirus testing was negative. Patient does not have any evidence of respiratory distress. Prior history of asthma and was given breathing treatment.Patient was given breathing treatment.She was given oral steroids. She was noted to have some improvement. Patient was given prescription for inhaler. Patient was advised to return if worse. The patient is advised to follow up with primary care doctor in 1-2 days. Patient is advised to return if any worsening condition or if any changes in status that are concerning. This report is dictated with [employer] home theatre technician software which may occasionally lead to discrepancies related to use of this software. Labs Test 09/20/19 09:47 Urine HCG, Qualitative Negative (NEGATIVE) Last Vital Signs Date Time Temp Pulse Resp B/P (MAP) Pulse Ox O2 Delivery O2 Flow Rate FiO2 09/20/19 09:46 88 17 Room Air 09/20/19 09:46 98.2 132/94 96 Status: improved Disposition: HOME, SELF-CARE Condition: Stable Scripts Albuterol Sulfate* (PROAIR HFA*) 8.5 Gm Hfa.aer.ad 2 PUFFS INH Q6H, #8.5 GM 0 Refills Prov: Epifanio Isaac MD 09/20/19 Prednisone* (PREDNISONE*) 20 Mg Tablet 40 MG ORAL DAILY, #10 TAB Prov: Epifanio Isaac MD 09/20/19 Epifanio Isaac MD Sep 20, 2019 10:06
--- NOTE | 2019-09-20 10:38 | NUR ---
ED Nurse Note: RT at bedside.
[2019-09-20] MEDS ORDERED: PROAIR HFA8.5 GM INH (10:58)
[2019-09-20] MEDS ORDERED: PREDNISONE20 MG ORAL (10:58)
--- NOTE | 2019-09-20 11:00 | Diagnostic Imaging Report ---
EXAM: XR Chest, 1 View CLINICAL HISTORY: SOB TECHNIQUE: Frontal view of the chest. COMPARISON: 05/24/19 FINDINGS: Lungs: Unremarkable. No consolidation. Pleural space: Unremarkable. No pneumothorax. Heart: Unremarkable. No cardiomegaly. Mediastinum: Unremarkable. Bones/joints: Unremarkable. IMPRESSION: Normal chest x-ray.
--- NOTE | 2019-09-20 11:02 | NUR ---
ED Nurse Note: After breathing treatment, pt notified RT that there's still some feeling of chest tightness. RN notified ERMD. Pt on bed, sitting, talking on her phone, satting at 100% on RA, will continue to monitor.
[2019-09-20 11:16] VITALS: BP 130/92
--- NOTE | 2019-09-20 11:16 | NUR ---
ER DISCHARGE NOTE: Patient is cleared to be discharged per ERMD, pt is aox4, on room air, with stable vital signs. pt was given dc and prescription instructions, pt was able to verbalize understanding, pt id band removed. pt is able to ambulate with steady gait. pt took all belongings.
== END 2019-09-20 11:16 | disposition home or self-care (01) ==
LOC: EMR 09:45
DX: J20.9 Acute bronchitis, unspecified (principal); E66.9 Obesity, unspecified; Z68.42 Body mass index [BMI] 45.0-49.9, adult
CPT/HCPCS: 71045; 81025; 94640; 99284; J7512; U0002; J7620

== ENCOUNTER 2020-02-14 12:18 | Emergency (ER) | payer BC ==
[~2020-02-14] VITALS: Ht 144.8 cm; Wt 99.3 kg
[2020-02-14 12:45] VITALS: BP 103/63
[2020-02-14 13:03] LABS: APPEARANCE,URINE SLIGHTLY CLOUDY; BILIRUBIN, URINE NEGATIVE (NEGATIVE); COLOR,URINE YELLOW; GLUCOSE, URINE (UA) NEGATIVE (NEGATIVE); KETONES,URINE NEGATIVE (NEGATIVE); LEUKOCYTE ESTERASE ,URINE 2+ (NEGATIVE); NITRITE,URINE NEGATIVE (NEGATIVE); PH,URINE 6.5 (4.5-8.0); PROTEIN,URINE NEGATIVE (NEGATIVE); UROBILINOGEN,URINE NORMAL MG/DL (0.0-1.0)
[2020-02-14 13:04] LABS: BASOPHILS % (AUTO) 1.5 % (0.0-2.0); EOSINOPHILS % (AUTO) 3.2 % (0.0-3.0); HEMATOCRIT 43.2 % (37.0-47.0); HEMOGLOBIN 14.6 G/DL (12.0-16.0); LYMPHOCYTES % (AUTO) 26.5 % (20.0-45.0); MEAN CORPUSCULAR VOLUME 85 FL (80-99); NEUTROPHILS % (AUTO) 63.8 % (45.0-75.0); PLATELET COUNT 385 K/UL (150-450); RED CELL DISTRIBUTION WIDTH 13.3 % (11.6-14.8); WHITE BLOOD COUNT 7.5 K/UL (4.8-10.8)
[2020-02-14 13:15] LABS: ANION GAP 6 mmol/L (5-15); BLOOD UREA NITROGEN 14 mg/dL (7-18); CALCIUM 8.5 MG/DL (8.5-10.1); CARBON DIOXIDE 28 MMOL/L (21-32); CHLORIDE 105 MMOL/L (98-107); POTASSIUM 3.4 MMOL/L (3.5-5.1); SODIUM 139 MMOL/L (136-145)
[2020-02-14 13:19] LABS: ALANINE AMINOTRANSFERASE 18 U/L (12-78); ALBUMIN 3.3 G/DL (3.4-5.0); ALBUMIN/GLOBULIN RATIO 0.9 (1.0-2.7); ALKALINE PHOSPHATASE 58 U/L (46-116); ASPARTATE AMINO TRANSFERASE 16 U/L (15-37); BILIRUBIN,TOTAL 0.3 MG/DL (0.2-1.0)
--- NOTE | 2020-02-14 13:43 | Emergency Room Report ---
History of Present Illness General Chief Complaint: General Complaint Source: Patient Present Illness HPI 39-year-old female presents to the emergency department complaining of 8 out of 10 severity epigastric abdominal pain associated with episodes of nausea vomiting and diarrhea since 11 February. Patient reports acute onset while she was on the plane returning home from [place]. She did denies fevers but reports cold sweats. She reports some fatigue. She states she is not sure whether or not she is . Patient reports that no one else in her republican had similar symptoms. She denies abdominal tenderness. She does report 7 out of 10 severity headache. She denies neck pain/stiffness or photophobia. Patient denies cough or shortness of breath. No other aggravating or relieving factors. Patient denies any significant past medical history. Allergies: Coded Allergies: No Known Allergies (Unverified , 09/07/12) COVID-19 Screening Contact w/high risk pt: No Recent Travel to affected area: No Experienced COVID-19 symptoms?: Yes COVID-19 Testing performed SNAGGER: No Patient History Past Medical History: see triage record Past Surgical History: none Pertinent Family History: none Last Menstrual Period: 01/18/2020 Reviewed Nursing Documentation: PMH: Agreed; PSxH: Agreed Nursing Documentation-PMH Past Medical History: No Stated History Hx Asthma: Yes Review of Systems All Other Systems: negative except mentioned in HPI Physical Exam Vital Signs Date Time Temp Pulse Resp B/P (MAP) Pulse Ox O2 Delivery O2 Flow Rate FiO2 02/14/20 12:25 97.3 73 19 103/63 (76) 100 Room Air Sp02 EP Interpretation: reviewed, normal General Appearance: no apparent distress, alert, GCS 15, non-toxic Head: normocephalic, atraumatic Eyes: bilateral eye normal inspection, bilateral eye PERRL ENT: hearing grossly normal, normal voice Neck: full range of motion, no meningismus, no bony tend Respiratory: chest non-tender, lungs clear, normal breath sounds, speaking full sentences Cardiovascular #1: regular rate, rhythm, no edema, normal capillary refill Gastrointestinal: normal bowel sounds, non tender, soft, non-distended, no guarding Genitourinary: normal inspection, no CVA tenderness Musculoskeletal: normal range of motion, gait/station normal, non-tender Neurologic: alert, motor strength/tone normal, oriented x3, sensory intact, responsive, speech normal Psychiatric: judgement/insight normal Skin: no rash, normal color Lymphatic: no adenopathy Medical Decision Making PA Attestation Dr. Hedrick Is my supervising Physician whom patient management has been discussed with. Diagnostic Impression: Primary Impression: Vomiting Qualified Codes: R11.10 - Vomiting, unspecified Additional Impression: Dehydration, mild ER Course 39-year-old female presents to the emergency department complaining of 8 out of 10 severity epigastric abdominal pain associated with episodes of nausea vomiting and diarrhea since 11 February. Patient reports acute onset while she was on the plane returning home from [place]. She did denies fevers but reports cold sweats. She reports some fatigue. She states she is not sure whether or not she is . Patient reports that no one else in her republican had similar symptoms. She denies abdominal tenderness. She does report 7 out of 10 severity headache. She denies neck pain/stiffness or photophobia. Patient denies cough or shortness of breath. No other aggravating or relieving factors. Patient denies any significant past medical history. Ddx considered but are not limited to Diverticulitis, acute appy, diarrhea,UC, PUD, GE, pancreatitis, gallstone, ovarian torsion, ectopic , PID tubo-ovarian abscess. Vital signs: are WNL, pt. is afebrile H&PE are most consistent with [ ] ORDERS: -CBC, CMP, LIPASE: potassium of 3.4 otherwise all unremarkable -UA: WNL -URINE HCG: Negative ED INTERVENTIONS: -PO zofran 4mg -.IV Fluids - 20 Meq Kcl PO DISCHARGE: At this time pt. is stable for d/c to home. Will provide printed patient care instructions, and any necessary prescriptions. Care plan and follow up instructions have been discussed with the patient prior to discharge. Labs Test 02/14/20 12:45 White Blood Count 7.5 K/UL (4.8-10.8) Red Blood Count 5.10 M/UL (4.20-5.40) Hemoglobin 14.6 G/DL (12.0-16.0) Hematocrit 43.2 % (37.0-47.0) Mean Corpuscular Volume 85 FL (80-99) Mean Corpuscular Hemoglobin 28.6 PG (27.0-31.0) Mean Corpuscular Hemoglobin Concent 33.8 G/DL (32.0-36.0) Red Cell Distribution Width 13.3 % (11.6-14.8) Platelet Count 385 K/UL (150-450) Mean Platelet Volume 5.9 FL (6.5-10.1) Neutrophils (%) (Auto) 63.8 % (45.0-75.0) Lymphocytes (%) (Auto) 26.5 % (20.0-45.0) Monocytes (%) (Auto) 5.0 % (1.0-10.0) Eosinophils (%) (Auto) 3.2 % (0.0-3.0) Basophils (%) (Auto) 1.5 % (0.0-2.0) Urine Color Yellow Urine Appearance Slightly cloudy Urine pH 6.5 (4.5-8.0) Urine Specific [place] 1.015 (1.005-1.035) Urine Protein Negative (NEGATIVE) Urine Glucose (UA) Negative (NEGATIVE) Urine Ketones Negative (NEGATIVE) Urine Blood Negative (NEGATIVE) Urine Nitrite Negative (NEGATIVE) Urine Bilirubin Negative (NEGATIVE) Urine Urobilinogen Normal MG/DL (0.0-1.0) Urine Leukocyte Esterase 2+ (NEGATIVE) Urine RBC 0 /HPF (0 - 2) Urine WBC 2-4 /HPF (0 - 2) Urine Squamous Epithelial Cells Moderate /LPF (NONE/OCC) Urine Bacteria Few /HPF (NONE) Urine HCG, Qualitative Negative (NEGATIVE) Sodium Level 139 MMOL/L (136-145) Potassium Level 3.4 MMOL/L (3.5-5.1) Chloride Level 105 MMOL/L (98-107) Carbon Dioxide Level 28 MMOL/L (21-32) Anion Gap 6 mmol/L (5-15) Blood Urea Nitrogen 14 mg/dL (7-18) Creatinine 1.0 MG/DL (0.55-1.30) Estimat Glomerular Filtration Rate > 60 mL/min (>60) Glucose Level 88 MG/DL (74-106) Calcium Level 8.5 MG/DL (8.5-10.1) Magnesium Level 2.3 MG/DL (1.8-2.4) Total Bilirubin 0.3 MG/DL (0.2-1.0) Aspartate Amino Transf (AST/SGOT) 16 U/L (15-37) Alanine Aminotransferase (ALT/SGPT) 18 U/L (12-78) Alkaline Phosphatase 58 U/L (46-116) Total Protein 7.0 G/DL (6.4-8.2) Albumin 3.3 G/DL (3.4-5.0) Globulin 3.7 g/dL Albumin/Globulin Ratio 0.9 (1.0-2.7) Lipase 52 U/L (73-393) Chest X-Ray Diagnostic Results Chest X-Ray Diagnostic Results : Chest X-Ray Ordered: Yes # of Views/Limited/Complete: 1 View EP Interpretation: Yes NIKKIE Xray: Interpretation reviewed, by supervising MD, and agrees with findings. Interpretation: no consolidation, no effusion, no pneumothorax, no acute cardiopulmonary disease Impression: No acute disease Electronically Signed by: Whit Kang PA-C Last Vital Signs Date Time Temp Pulse Resp B/P (MAP) Pulse Ox O2 Delivery O2 Flow Rate FiO2 02/14/20 12:45 73 19 Room Air 02/14/20 12:45 97.3 103/63 100 Status: improved Disposition: HOME, SELF-CARE Condition: Stable Scripts Famotidine* (Pepcid 20mg tablet*) 20 Mg Tablet 20 MG ORAL TWICE A DAY for Gerd for 5 Days, #10 TAB 0 Refills Prov: Whit Kang 02/14/20 Ondansetron Odt* (ZOFRAN ODT*) 4 Mg Tab.rapdis 4 MG BC EVERY 6 HOURS PRN for Nausea & Vomiting, #12 TAB 0 Refills Prov: Whit Kang 02/14/20 Referrals: NOT CHOSEN IPA/,REFERRING (PCP) [facility]. [facility] + [facility] Patient Instructions: Nausea and Vomiting, Adult, [id number] Additional Instructions: Take medications as directed. Follow up with a Primary Care Provider in 3-5 days, even if your symptoms have resolved. --Please review list of primary care clinics, if you do not already have a primary care provider Return sooner to ED if new symptoms occur, or current symptoms become worse. - Please note that this Emergency Department Report was dictated using [employer] end web developer technology software, occasionally this can lead to erroneous entry secondary to interpretation by the dictation equipment. Whit Kang Feb 14, 2020 13:43
--- NOTE | 2020-02-14 14:17 | Diagnostic Imaging Report ---
EXAM: XR Chest, 1 View CLINICAL HISTORY: COUGH TECHNIQUE: Frontal view of the chest. COMPARISON: Chest x-rays dated 09/20/19. FINDINGS: Limitations: The right thorax is partially obscured by image artifact. Lungs: Right lung, partially obscured by image artifact. Left lung is clear. No focal consolidation. Pleural space: Unremarkable. The costophrenic angles are sharp. No visible pneumothorax. Heart: Unremarkable. No cardiomegaly. Mediastinum: Unremarkable. Bones/joints: Unremarkable. IMPRESSION: Overlying image artifact degrades evaluation of the right lung. Left lung is clear.
[2020-02-14] MEDS ORDERED: ONDANSETRON ODT4 MG BC (15:02)
[2020-02-14] MEDS ORDERED: FAMOTIDINE20 MG ORAL (15:02)
[2020-02-14 15:39] VITALS: BP 117/75
[2020-02-14] MEDS ORDERED: ONDANSETRON ODT4 MG BUCCAL (18:00)
== END 2020-02-14 15:39 | disposition home or self-care (01) ==
LOC: EMR 12:42
DX: R11.10 Vomiting, unspecified (principal); E86.0 Dehydration; J45.909 Unspecified asthma, uncomplicated
CPT/HCPCS: 36415; 71045; 80053; 81003; 81025; 83690; 83735; 85025; 86710; 96361; 96374; 99284; J2405; J7030; U0004; J8499

== ENCOUNTER 2020-04-28 17:12 | Emergency (ER) | payer BC ==
[~2020-04-28] VITALS: Ht 144.8 cm; Wt 98.9 kg
[~2020-04-28 17:12] MED LIST changes: +ONDANSETRON ODT4 MG BUCCAL
[2020-04-28] MEDS ORDERED: ACETAMINOPHEN325 M1 ORAL (17:44)
--- NOTE | 2020-04-28 18:09 | NUR ---
ED Nurse Note: pt got covid vaccine yesterday and now is feeling side effects and would like a note to be off work tomorrow.
[2020-04-28 18:13] VITALS: BP 107/76
--- NOTE | 2020-04-28 18:16 | NUR ---
ER DISCHARGE NOTE: Patient is cleared to be discharged per ERMD, pt is aox4, on room air, with stable vital signs. pt was given dc and prescription instructions, pt was able to verbalize understanding. pt is able to ambulate with steady gait. pt took all belongings.
--- NOTE | 2020-04-28 18:58 | Emergency Room Report ---
History of Present Illness General Chief Complaint: Flu Like Symptoms Present Illness HPI 40-year-old female here with generalized malaise after receiving her second COVID-19 vaccination. Patient says "I only need a work note." Denies headache, vision change, fevers, chills, chest pain, palpitation, shortness of breath, back pain, abdominal pain, nausea, vomiting, diarrhea, dysuria. 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 COVID-19 Screening: Negative COVID-19 COVID-19 Testing Source: [employer] Patient History Now: No Nursing Documentation-[facility] Hx Asthma: Yes Review of Systems All Other Systems: negative except mentioned in HPI Physical Exam Vital Signs Date Time Temp Pulse Resp B/P (MAP) Pulse Ox O2 Delivery O2 Flow Rate FiO2 04/28/20 17:28 98.8 95 16 107/76 (86) 98 Room Air Sp02 EP Interpretation: reviewed, normal General Appearance: no apparent distress, alert, non-toxic Head: normocephalic, atraumatic Eyes: bilateral eye normal inspection, bilateral eye PERRL ENT: hearing grossly normal, normal pharynx, no angioedema, normal voice Neck: full range of motion, supple/symm/no masses Respiratory: chest non-tender, lungs clear, normal breath sounds, speaking full sentences Cardiovascular #1: regular rate, rhythm, no edema Cardiovascular #2: 2+ carotid (R), 2+ carotid (L), 2+ radial (R), 2+ radial (L), 2+ dorsalis pedis (R), 2+ dorsalis pedis (L) Gastrointestinal: normal bowel sounds, non tender, soft, non-distended, no guarding, no rebound Rectal: deferred Genitourinary: normal inspection, no CVA tenderness Musculoskeletal: back normal, normal range of motion, gait/station normal, non- tender Neurologic: alert, motor strength/tone normal, oriented x3, sensory intact, responsive, speech normal Psychiatric: judgement/insight normal, memory normal, mood/affect normal, no suicidal/homicidal ideation Lymphatic: no adenopathy Medical Decision Making Diagnostic Impression: Primary Impression: Influenza-like symptoms Additional Impression: Vaccination reaction ER Course 40-year-old female here with generalized malaise after receiving her second COVID-19 vaccination. Patient normal vital signs and normal physical examination. She was requesting only a work note. Given a work note for 2 days and discharged in stable condition. Told to return with any worsening symptoms. Last Vital Signs Date Time Temp Pulse Resp B/P (MAP) Pulse Ox O2 Delivery O2 Flow Rate FiO2 04/28/20 18:13 98.8 16 107/76 98 Room Air 04/28/20 18:13 95 Disposition: HOME, SELF-CARE Condition: Stable Scripts Acetaminophen* (ACETAMINOPHEN 325MG TABLET*) 325 Mg Tablet 325 MG ORAL Q4H PRN for For Pain, #20 TAB Prov: Tez Bazan M.D. 04/28/20 Referrals: [facility] Departure Forms: Return to Work Return to Work in (Days): 2 Tez Bazan M.D. Apr 28, 2020 18:58
== END 2020-04-28 18:13 | disposition home or self-care (01) ==
LOC: EMR 18:10
DX: T88.1XXA Other complications following immunization, not elsewhere classified, initial encounter (principal); J11.1 Influenza due to unidentified influenza virus with other respiratory manifestations; J45.909 Unspecified asthma, uncomplicated
CPT/HCPCS: 99282

== ENCOUNTER 2020-05-24 18:05 | Emergency (ER) | payer BC ==
[~2020-05-24] VITALS: Ht 170.2 cm; Wt 90.7 kg
[~2020-05-24 18:05] MED LIST changes: +ACETAMINOPHEN325 M1 ORAL
--- NOTE | 2020-05-24 19:11 | Emergency Room Report ---
History of Present Illness General Chief Complaint: Lower Back Pain or Injury Source: Patient Present Illness HPI 40-year-old female presents to the emergency department complaining of 8 out of 10 severity low back pain with radiation down the left side into the left buttock intermittently x1 week. Patient reports is happening more frequently. Patient reports that standing and lifting heavy trays with though as well as washing dishes at work have been exacerbating her symptoms. She denies trauma or fall. She denies any recent spinal procedures. She reports only history of asthma and sinusitis. Patient denies taking any medications for her symptoms. She reports sometimes sitting can exacerbate her symptoms as well. She denies paresthesias, incontinence of bowel or urine. She denies history of cancer. She denies fevers, chills or night sweats. Patient denies any abdominal symptoms she denies abdominal tenderness, urinary frequency, urgency, dysuria or hematuria. Patient reports she just had her period 1 week ago which began on the first and she denies suspicion of . She denies constipation or diarrhea. She denies any other modifying or relieving factors. 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 COVID-19 Screening: Negative COVID-19 COVID-19 Testing Source: [facility] Patient History Past Medical History: see triage record Past Surgical History: none Pertinent Family History: none Last Menstrual Period: 05/10/20 Now: No Reviewed Nursing Documentation: PMH: Agreed; PSxH: Agreed Nursing Documentation-PMH Hx Asthma: Yes Review of Systems All Other Systems: negative except mentioned in HPI Physical Exam Vital Signs Date Time Temp Pulse Resp B/P (MAP) Pulse Ox O2 Delivery O2 Flow Rate FiO2 05/24/20 18:34 98.4 84 20 141/74 (96) 98 Room Air Sp02 EP Interpretation: reviewed, normal General Appearance: no apparent distress, alert, GCS 15, non-toxic Head: normocephalic, atraumatic Eyes: bilateral eye normal inspection, bilateral eye PERRL ENT: hearing grossly normal, normal voice Neck: full range of motion Respiratory: lungs clear, normal breath sounds, speaking full sentences Cardiovascular #1: regular rate, rhythm Gastrointestinal: normal bowel sounds, non tender, soft, non-distended, no guarding Rectal: deferred Genitourinary: normal inspection, no CVA tenderness Musculoskeletal: normal range of motion, gait/station normal, tender - TTP in the paraspinal musculature and upper gluteal area bilaterally, more pronounced on the left. No palpable step off, no midline ttp. Neurologic: alert, motor strength/tone normal, oriented x3, sensory intact, responsive, speech normal Psychiatric: judgement/insight normal Lymphatic: no adenopathy Medical Decision Making PA Attestation Dr. Isaac is my supervising Physician whom patient management has been discussed with. Diagnostic Impression: Primary Impression: Low back pain Qualified Codes: M54.42 - Lumbago with sciatica, left side ER Course 40-year-old female presents to the emergency department complaining of 8 out of 10 severity low back pain with radiation down the left side into the left buttock intermittently x1 week. Patient reports is happening more frequently. Patient reports that standing and lifting heavy trays with though as well as washing dishes at work have been exacerbating her symptoms. She denies trauma or fall. She denies any recent spinal procedures. She reports only history of asthma and sinusitis. Patient denies taking any medications for her symptoms. She reports sometimes sitting can exacerbate her symptoms as well. She denies paresthesias, incontinence of bowel or urine. She denies history of cancer. She denies fevers, chills or night sweats. Patient denies any abdominal symptoms she denies abdominal tenderness, urinary frequency, urgency, dysuria or hematuria. Patient reports she just had her period 1 week ago which began on the first and she denies suspicion of . She denies constipation or diarrhea. She denies any other modifying or relieving factors. Ddx considered: epidural abscess, fracture, sprain/strain, meningitis, spinal chord injury, sciatica, cauda equina, Pyelonephritis, renal calculi just to name a few. Vital signs reviewed and are WNL during ED visit. Pt. is afebrile with no signs of infection No new symptoms, and denies recent trauma. No saddle anesthesia noted, Pt. denies incontinence Neurovascular is intact * Mild Tenderness to palpation to paraspinal muscles of the lower back, L>R without midline tenderness. *Pt. describes pain today as moderate and radiates across the lower back and down into the left upper glute. ORDERS: none warranted at this time. INTERVENTIONS: - 30mg IM Toradol Lidoderm TP D/W Pt. will need outpatient follow up and re-evaluation. Pt. given ED return precautions. DISCHARGE: At this time pt. is stable for d/c to home. Will provide printed patient care instructions, and any necessary prescriptions. Care plan and follow up instructions have been discussed with the patient prior to discharge. Last Vital Signs Date Time Temp Pulse Resp B/P (MAP) Pulse Ox O2 Delivery O2 Flow Rate FiO2 05/24/20 18:34 98.4 84 20 141/74 (96) 98 Room Air Disposition: HOME, SELF-CARE Condition: Stable Scripts Lidocaine Patch* (Lidoderm Patch*) 1 Each Adh..patch 1 PATCH TOPIC DAILY, #30 PATCH 0 Refills Patch(es) may remain in place for up to 12 hours in any 24-hour period. Prov: Whit Kang 05/24/20 Ibuprofen* (MOTRIN*) 600 Mg Tablet 600 MG ORAL THREE TIMES A DAY, #20 TAB Prov: Whit Kang 05/24/20 Methocarbamol* (ROBAXIN-750*) 750 Mg Tablet 750 MG PO QID, #28 TAB 0 Refills Prov: Whit Kang 05/24/20 Referrals: NOT CHOSEN IPA/MD,REFERRING (PCP) Patient Instructions: Lumbosacral Strain Additional Instructions: Take medications as directed. Follow up with a Primary Care Provider in 3-5 days, even if your symptoms have resolved. --Please review list of primary care clinics, if you do not already have a primary care provider Return sooner to ED if new symptoms occur, or current symptoms become worse. Do not drink alcohol, drive, or operate heavy machinery while taking Robaxin ( Muscle Relaxers) as this may cause drowsiness. - Please note that this Emergency Department Report was dictated using [employer] lead technology software, occasionally this can lead to erroneous entry secondary to interpretation by the dictation equipment. Whit Kang May 24, 2020 19:11
--- NOTE | 2020-05-24 19:12 | NUR ---
pt arrived. states low back pain beginning gradually over the past few months, increasingly worse. pt denies trauma to area, denies falling. pt states pain is worse when bending over or doing certain movements at work. pt states pain radiates down to buttock area, bilaterally. pt states pain is better lying flat on firm surface. pt denies allergies to medication. pt denies pmh. pt taking ibu at home, no relief. color sensation and movement intact in lower extremities bilaterally. pt medicated per eMAR. pt stable. handoff pt to Angelic COLLADO.
[2020-05-24] MEDS ORDERED: IBUPROFEN600 M1 ORAL (19:13)
[2020-05-24] MEDS ORDERED: ROBAXIN-750750 MG PO (19:13)
[2020-05-24] MEDS ORDERED: LIDODERM700 M1 TOPIC (19:13)
--- NOTE | 2020-05-24 19:13 | NUR ---
pt medicated per mar
[2020-05-24] MEDS ORDERED: Ketorolac 30mg Inj IM ONE (19:15)
[2020-05-24 19:16] VITALS: BP 139/86
--- NOTE | 2020-05-24 19:20 | NUR ---
pt aox4 given and understands discharge instructions. v/s stable. pt in no distress. ambulatory out w steady gait
== END 2020-05-24 19:24 | disposition home or self-care (01) ==
LOC: EMR 18:29
DX: M54.42 Lumbago with sciatica, left side (principal)
CPT/HCPCS: 96372; 99283; J1885